=== PATIENT | female | born 1965 | race American Indian/Alaskan Native ===

== ENCOUNTER 2021-01-11 14:03 | Emergency (ER) | payer OTHER ==
[2021-01-11 17:31] VITALS: BP 149/88
--- NOTE | 2021-01-11 18:49 | Emergency Department Report ---
ED Female HPI - General Chief complaint: Urogenital-Female Stated complaint: RT BREAST PAIN Time Seen by Provider: 01/11/21 18:20 Source: patient Mode of arrival: Ambulatory Limitations: No Limitations - History of Present Illness Initial comments: This is a 55-year-old female with no prior medical history who presents to the ED complaining of her right breast pain x2 days. Patient states suddenly yesterday she started feeling painful sensation in her right breast. Patient denies any trauma or injury to the breast. Patient denies any nipple discharge. Patient states she has not had a mammogram yet. Patient denies chest pain, fever, chills, nausea vomiting or diarrhea. - Related Data Previous Rx's Medication Instructions Recorded Last Taken Type Acetaminophen/Codeine [Tylenol 1 tab PO Q6H #12 tab 01/11/21 Unknown Rx /Codeine # 3 tab] Amoxicillin [Amoxicillin TAB] 875 mg PO BID #20 tablet 01/11/21 Unknown Rx Ibuprofen [Motrin] 800 mg PO Q8HR #40 tablet 01/11/21 Unknown Rx ED Review of Systems ROS: Stated complaint: RT BREAST PAIN Other details as noted in HPI Comment: All other systems reviewed and negative ED Past Medical Hx - Past Medical History Previous Medical History?: No - Surgical History Past Surgical History?: No - Social History Smoking Status: Never Smoker Substance Use Type: None - Medications Home Medications: Home Medications Medication Instructions Recorded Confirmed Last Taken Type Acetaminophen/Codeine [Tylenol 1 tab PO Q6H #12 tab 01/11/21 Unknown Rx /Codeine # 3 tab] Amoxicillin [Amoxicillin TAB] 875 mg PO BID #20 tablet 01/11/21 Unknown Rx Ibuprofen [Motrin] 800 mg PO Q8HR #40 tablet 01/11/21 Unknown Rx ED Physical Exam - General Limitations: No Limitations - Eye Eye exam: Present: normal appearance Pupils: Present: normal accommodation - ENT ENT exam: Present: normal exam - Neck Neck exam: Present: normal inspection - Respiratory Respiratory exam: Present: normal lung sounds bilaterally. Absent: respiratory distress, wheezes, chest wall tenderness, accessory muscle use - Cardiovascular Cardiovascular Exam: Present: regular rate, normal rhythm - Neurological Exam Neurological exam: Present: CN II-XII intact, normal gait - Skin Skin exam: Present: warm, dry, intact, normal color. Absent: rash - Other Other exam information: BREAST: Symetrical, Supple bilaterally, tenderness to palpation of right breast at 5:00. No nipple discharge, nonerythematous bilaterally No lumps, lesions, ulcerations. ED Course Vital Signs 01/11/21 17:24 Temperature 98.9 F Pulse Rate 88 Respiratory 16 Rate Blood Pressure 149/88 Blood Pressure 149/88 [Right] O2 Sat by Pulse 100 Oximetry ED Medical Decision Making - Medical Decision Making 55-year-old female presented with right breast pain Discussed with patient need to follow-up with the breast specialist. Discussed pain control and antibiotics for prophylaxis for cellulitis. Referral given to patient. Vital signs are normal she is in no acute distress. Patient states she understands instructions and will follow up with breast specialist as referred. Critical care attestation.: If time is entered above; I have spent that time in minutes in the direct care of this critically ill patient, excluding procedure time. ED Disposition Clinical Impression: Breast pain in female Disposition: 01 HOME / SELF CARE / HOMELESS Is pt being admited?: No Does the pt Need Aspirin: No Condition: Stable Instructions: Nonspecific Chest Pain, Adult, Breast Tenderness Additional Instructions: Make sure to follow up with the primary care physician as discussed. Take all your medications as you've been prescribed. If you have any worsening symptoms or develop new symptoms please return to ED immediately. Prescriptions: Amoxicillin [Amoxicillin TAB] 875 mg PO BID #20 tablet Ibuprofen [Motrin] 800 mg PO Q8HR #40 tablet Acetaminophen/Codeine [Tylenol /Codeine # 3 tab] 1 tab PO Q6H #12 tab Referrals: TI AVALOS MD [Primary Care Provider] - 3-5 Days SHARON GRISSOM MD [Staff Physician] - 3-5 Days POORNIMA GUZMAN MD [Staff Physician] - 3-5 Days Forms: Work/School Release Form(ED), Accompanied Note Time of Disposition: 18:52
== END 2021-01-11 19:40 | disposition home or self-care (01) ==
LOC: ED 14:03
DX: N64.4 Mastodynia (principal); Z79.899 Other long term (current) drug therapy
CPT/HCPCS: 99282